=== PATIENT | male | born 1950 | race Two or more races ===

== ENCOUNTER 2018-05-03 07:36 | Emergency (ER) | payer SELFPAY ==
[~2018-05-03] VITALS: Ht 182.9 cm; Wt 93.6 kg
[2018-05-03 07:43] VITALS: BP 132/60; PULSE 51; RESP 20; Ht 182.9 cm; Wt 93.6 kg
--- NOTE | 2018-05-03 08:36 | ERD ---
ER Documentation Chief Complaint Chief Complaint Sent from MD for evaluation weakness HPI This is a 67-year-old male with no significant past medical history who is presenting for laboratory testing. The patient reports that he was evaluated by his primary care physician, Dr. Mustafa, recently who ordered outpatient testing. The patient reports fatigue and sexual dysfunction. He is planning to have his testosterone levels checked. The patient reports that he came to the emergency department by mistake. He meant to go to an outpatient laboratory facility. The patient currently has no complaints. The patient denies feeling sick recently. The patient denies fever or chills. The patient has had no headache or vision changes. The patient does not endorse neck or back pain. The patient denies lightheadedness or dizziness. The patient has had no chest pain or trouble breathing. The patient denies nausea or vomiting. The patient denies abdominal pain. The patient denies changes to bowel movements or urination. The patient has had no focal deficits. The patient has had no weakness or numbness or tingling to the face or extremities. ROS All systems reviewed and are negative except as per history of present illness. PMhx/Soc Medical and Surgical Hx: pt denies Medical Hx, pt denies Surgical Hx History of Surgery: No Hx Neurological Disorder: No Hx Respiratory Disorders: No Hx Cardiac Disorders: No Hx Psychiatric Problems: No Hx Miscellaneous Medical Probl: No Hx Alcohol Use: No Hx Substance Use: No Hx Tobacco Use: No Smoking Status: Never smoker Physical Exam Vitals Vital Signs Date Temp Pulse Resp B/P (MAP) Pulse Ox O2 O2 Flow FiO2 Time Delivery Rate 05/03/18 97.2 51 20 132/60 98 07:43 (84) Physical Exam Const: No apparent distress, well-developed, well-nourished Head: Normocephalic, Atraumatic Eyes: Normal Conjunctiva. ENT: Normal External Ears, Nose and Mouth. Neck: Full range of motion. No meningismus. Resp: Clear to auscultation bilaterally, No wheezes, rales or rhonchi Cardio: Regular rate and rhythm. No murmurs, rubs or gallops Abd: Soft, non tender, non distended. Normal bowel sounds Skin: No petechiae or rashes Back: No midline tenderness. No CVA tenderness Ext: No cyanosis, or edema Neur: Awake and alert, oriented 4. Cranial nerves intact. No facial droop. Normal strength, sensation and coordination. Psych: Normal Mood and Affect Procedures/MDM MDM The patient's presentation warrants further investigation. Previous medical records, if available, were reviewed. The patient presents for a desire to have his testosterone levels checked. Unfortunately, this is not something that cannot be done in the emergency department. The patient meant to go to an outpatient laboratory testing center, but he lost the paperwork with the name of the outpatient facility. We will provide him the information to the nearest [facility] diagnostic center. I spoke with the patient's primary physician, who agreed that these tests may be done in an outpatient setting. He will follow-up on the results and will follow up with the patient. The medical screening exam was completed. The patient does not require any emergent diagnostic tests. TREATMENT/DISPOSITION The patient does not require any immediate interventions. No emergent diagnoses were identified. At this time, I feel that the patient stable for discharge. The patient was instructed to follow-up with a primary care physician in 1-3 days. The patient will be given strict precautions with which to return to the emergency department. Prescriptions: None The patient's blood pressure was elevated at greater than 120/80 while in the emergency department. The patient was otherwise stable with no evidence of hypertensive urgency or emergency. The patient does not require admission for blood pressure control. I have discussed with the patient the risks of hypertension. I have instructed the patient to return to the ER for any new or worsening symptoms including chest pain, shortness of breath, headache, blurred vision, confusion, nausea, vomiting or LOC. I have advised the patient to follow up with the primary care physician for outpatient monitoring and treatment for hypertension in 1-3 days. Disclaimer: Inadvertent spelling and grammatical errors are likely due to EHR/dictation software use and do not reflect on the overall quality of patient care. Note that the electronic time recorded on this note does not necessarily reflect the actual time of the patient encounter. Departure Diagnosis: Primary Impression: Encounter for laboratory test Condition: ADELA Jennings MD May 03, 2018 08:36
== END 2018-05-03 08:37 | disposition home or self-care (01) ==
LOC: E/R 07:36
DX: Z00.00 Encounter for general adult medical examination without abnormal findings (principal)
CPT/HCPCS: 99282